=== PATIENT | female | born 1970 | race Two or more races ===

== ENCOUNTER 2018-07-15 16:20 | Emergency (ER) | payer MEDICAID ==
[~2018-07-15] VITALS: Ht 157.5 cm; Wt 72.6 kg
[2018-07-15 16:40] VITALS: BP 157/92
[2018-07-15] MEDS ORDERED: IBUPROFEN 800 MG TAB PO ONE (17:45)
== END 2018-07-15 18:24 | disposition home or self-care (01) ==
LOC: ER 16:20
DX: S16.1XXA Strain of muscle, fascia and tendon at neck level, initial encounter (principal); V49.59XA Passenger injured in collision with other motor vehicles in traffic accident, initial encounter; Y93.89 Activity, other specified; Y99.8 Other external cause status; Y92.488 Other paved roadways as the place of occurrence of the external cause
CPT/HCPCS: 72040; 99283; L0120